=== PATIENT | female | born 1985 | race African-American/Black ===

== ENCOUNTER 2016-10-12 14:05 | Inpatient (IN) | payer OTHER ==
--- NOTE | ~2016-10-12 | CT16 ---
[facility] A Service of [facility] RADIOLOGY TEXT RESULTS PATIENT: JUVENAL MANCUSO LOCATION: [facility] 559-01 : [birth year] UNIT #: [id number] AGE: [address]: Giovani Pinzon MD SEX: F ORDER DR: [id number] [facility] [address] [place], [place] [address] [id number] E MR#: [id number] #: [id number] NAME: JUVENAL MANCUSO : 1985 SEX: F STUDY DATE/TIME: 10/12/2016 16:26 UNIT: [facility] ROOM: STUDY DESCRIPTION: CT Angio Chest for PE Attending Physician: Jonathan Ely M.D. Ordering Physician: Jonathan Ely M.D. Primary Care Physician: Kayy Nina Aprn MEDICAL IMAGING REPORT This report is preliminary unless electronic signature is present EXAM CT chest PE protocol 10/12/2016 HISTORY Flu-like symptoms, cough, shortness of air. COMPARISON STUDIES CT chest PE protocol 05/14/2015 TECHNIQUE Axial images performed through the chest following IV contrast. 3-D coronal and sagittal reconstructed images reviewed at a workstation. This CT exam was performed with one or more of the following radiation dose reduction techniques: automatic exposure control, adjustment of mA and/or kV according to patient size, and iterative reconstruction. FINDINGS There is a small right pleural effusion layering to a depth of just over a centimeter. Some fluid layers into the fissure. No significant fluid on the left. No focal airspace disease or consolidation. Minimal prominence of the interstitium could represent a component of interstitial edema. Trachea and bronchi unremarkable. There is cardiomegaly with 4-chamber enlargement been. No significant pericardial effusion. There is distension of the hepatic veins with reflux of contrast suggesting elevated right heart pressures and findings could reflect early CHF. Normal enhancement of the pulmonary arteries. No evidence of embolus. No significant adenopathy. Upper abdomen remarkable for prior Lap-Band surgery. Patient is post cholecystectomy. Thoracic spine thoracic inlet unremarkable. Pacemaker is noted over the left chest. [facility] A Service of [facility] RADIOLOGY TEXT RESULTS PATIENT: JUVENAL MANCUSO LOCATION: [facility] 559-01 : [birth year] UNIT #: [id number] AGE: [address]: Giovani Pinzon MD SEX: F ORDER DR: IMPRESSION 1. No evidence of pulmonary embolus. 2. Cardiomegaly with prominence of the pulmonary interstitium and small right pleural effusion as well as distension of hepatic veins all findings supporting heart failure. Dictated by... Yaakov Pro M.D. THIS IS AN ELECTRONICALLY VERIFIED REPORT Yaakov Pro M.D. at 10/13/2016 5:29 PM Odalis TD: 10/12/2016 17:30 JOB #: [id number] MEDICAL IMAGING REPORT Page 1 of 1 COPY
--- NOTE | ~2016-10-12 | EKG ---
PATIENT: JUVENAL MANCUSO UNIT #: [id number] Ventricular Rate: 118 BPM Atrial Rate: 118 BPM QRS Duration: 142 ms Q-T Interval: 410 ms QTC Calculation(Bezet): 574 ms P [place]: 90 degrees Calculated R [place]: -133 degrees Calculated T [place]: -123 degrees Diagnosis Line: Ventricular-paced rhythm Diagnosis Line: Biventricular pacemaker detected Diagnosis Line: Abnormal ECG Diagnosis Line: When compared with ECG of 13-OCT-2016 22:07, Diagnosis Line: (unconfirmed) Diagnosis Line: Vent. rate has decreased BY 7 BPM Diagnosis Line: Confirmed by ZAHRAA POOLE MD ([id number]) on 10/16/2016 Diagnosis Line: 9:16:11 PM INTERPRETING MD: VIRGILIO KWON
--- NOTE | ~2016-10-12 | HP ---
Unit #: [id number] #: [id number] Patient: JUVENAL MANCUSO [id number] [facility]. [place], [place] [address] [id number] I MR#: [id number] NAME: JUVENAL MANCUSO ROOM: 559 Age: 31 Sex: F Admission Date: 10/12/2016 : 1985 Attending Physician: Giovani Pinzon M.D. Primary Care Physician: Kayy Nina Aprn HISTORY AND PHYSICAL Also note, the patient [facility] Dr. Pinzon. HISTORY OF PRESENT ILLNESS This is a pleasant, 31-year-old -Pakistani female with a past medical history of nonischemic cardiomyopathy. Last known echo was 10 to 15%. She is status post biventricular AICD, [employer] device, in January of 2016, performed at [facility]. She also has a past medical history of asthma, left bundle branch block, hypertension, obesity, systolic congestive heart failure and the patient reports a history of pulmonary embolus in the past. The patient presents to the emergency room with complaints of shortness of breath, two to three pillow orthopnea and PND as well as lower extremity swelling for approximately one week. She states she had tried increasing her diuretics at home but that did not help. She does report, during the history, that she has been drinking more water lately as well as chewing on a lot of ice. She also eats out often and appears she is taking in more sodium than typical. The patient reported to me last week she had intermittent fever and chills and some flu-like symptoms as well as body aches, productive cough with yellow-greenish sputum. She also reports intermittent complaints of substernal chest pain that appear worse with ambulation but denies any radiation of the pain to her arm, jaw, shoulders or back and she denies any diaphoresis, nausea or vomiting. The patient does report intermittent palpitations from time to time. On arrival to the emergency room, the patient was noted to be in sinus tachycardia, rate of 111 beats per minute. She is in a paced rhythm. Initial point of care troponins have been negative. She was noted to be running a low-grade temperature and with borderline low blood pressure. Blood cultures were drawn which are currently pending. Her BNP was noted to be 1,055 on admission and her chest x-ray showed stable cardiomegaly. After speaking with the emergency room physician, it was decided to perform a CT angiogram of her chest to rule out pulmonary embolus. The patient reports she has a history of PE in the past. However, I reviewed the last several CT scans which show no evidence of PE. In the emergency room, she was also found to be severely hypokalemic with a potassium of 2.7. This is currently being replaced per protocol. At present, she looks fatigued. She does not feel well but she does not appear to be in any acute respiratory or cardiopulmonary distress. The patient does report to me that she has not been able to take her metoprolol as it causes severe fatigue and dizziness as well as sweating. Unit #: [id number] #: [id number] Patient: JUVENAL MANCUSO She states she has not been on it for approximately the last one week. We are admitting for the above reasons. PAST MEDICAL HISTORY 1. Nonischemic cardiomyopathy. EF of 10 to 15% per 2-D echo in 05/2015. Mildly dilated left ventricle. Mild to moderate MR, moderate TR and mild AR. Mild to moderate PVR. Elevated RVSP of 40 to 50 mmHg. 2. Hypertension. 3. Asthma. 4. Obesity. BMI 43. 5. Chronic left bundle branch block. 6. 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 Severe LV systolic dysfunction. Ejection fraction of 10 to 15% and severe MR. 7. Systolic congestive heart failure. PAST SURGICAL HISTORY 1. Status post [employer] biventricular AICD in January 2016. 2. Lap band 2012. 3. Cholecystectomy. 4. Tonsillectomy. 5. . SOCIAL HISTORY The patient is single. She lives with her family. 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 She is a lifelong nonsmoker. She denies any illicit drugs or alcohol. FAMILY HISTORY Positive for VT in her father at the age of 74. ALLERGIES Penicillin and sulfa. HOME MEDICATIONS 1. Metoprolol tartrate 50 mg p.o. b.i.d. However, the patient states she has not been taking this for approximately the last week due to intolerance. She states it causes dizziness, sweating. 2. Aldactone 25 mg p.o. daily. 3. Klor-Con 40 mEq p.o. daily. 4. Lisinopril 5 mg p.o. daily. 5. Furosemide 40 mg p.o. b.i.d. REVIEW OF SYSTEMS Positive for shortness of breath, intermittent chest pain, intermittent palpitations, lower extremity edema, PND, two pillow orthopnea. Otherwise, negative except for what was stated above in the HPI. PHYSICAL EXAMINATION GENERAL APPEARANCE: This is a pleasant 31-year-old -Pakistani female in no acute distress. She is awake, alert and oriented x3. VITAL SIGNS: Temperature 97.8. Respiratory rate 20. Pulse 116. Blood pressure 96/64 to 107/91. HEENT: Pupils are equal and round. Mucous membranes are moist. NECK: Trachea is midline. No thyromegaly or lymphadenopathy. Positive for JVD. No carotid bruits. Unit #: [id number] #: [id number] Patient: WALKER,JUVENAL LUNGS: Clear to auscultation. Diminished in the bases bilaterally. ABDOMEN: Obese, soft, nontender. No masses. CARDIOVASCULAR: S1, S2. Tachycardia. Positive S3. EXTREMITIES: Trace to 1+ pedal edema. Pulses are palpable. NEUROLOGIC: She is awake, alert and oriented. She moves all extremities equally. She follows commands without difficulty. DIAGNOSTIC STUDIES LABORATORY: Potassium is 2.7, currently being treated, BUN 12, creatinine 1.1, magnesium 1.8. Point of care troponins have been negative. BNP 1,055. TSH 2.91. Hemoglobin 14.0, hematocrit 43.1, WBC 4.5, platelet count 209. IMAGING: Chest x-ray shows cardiomegaly. No active disease. CARDIOVASCULAR: EKG shows atrial sensed ventricular paced rhythm, rate of 111 beats per minute, biventricular pacemaker is present. QTC interval of 587 msec. No acute ischemic change. IMPRESSION 1. Acute on chronic systolic congestive heart failure. 2. Nonischemic cardiomyopathy. LVEF of 10 to 15% per 2-D echo on April 11, 2016, also has moderate to severe mitral regurgitation, moderate to severe tricuspid regurgitation, mild pulmonic regurgitation, RVSP of 44 mmHg consistent with mild pulmonary hypertension. 3. Status post [employer] biventricular AICD in January of 2016. 4. Hypokalemia. 5. Cardiac cath in 2014 which showed normal coronary arteries. 6. History of PE per the patient, however, cannot find any prior record of this at present. 7. Hypertension. 8. Obesity. 9. Chronic left bundle branch block. 10. Asthma. The patient is being admitted for acute on chronic systolic congestive heart failure. She will be placed on an 1,800 mL fluid restriction as well as a low sodium diet. I have discussed with the patient the importance of following fluid restriction at home as well as low sodium at home as it appears she has not been doing so as of late. She is also found to be profoundly hypokalemic on admission. She has been given potassium supplementation and I have placed her on potassium and magnesium protocol replacement. She will be diuresed with Lasix 40 mg IV q.12 hours. She will also be started on dobutamine drip at 5 mcg/kg/minute. She reports a history of PE in the past and states she was on some medication but has not been taking it routinely. I have reviewed prior records and do not see any evidence of PE at this hospital. However, at present, I have discussed with the emergency room physician and they will go ahead and proceed with CTA of the chest to rule out PE. This is currently pending. For now, we will put her on Lovenox at 1 mg/kg subcu q.12 hours. We will also check CBC, BMP, magnesium and TSH levels in the a.m. The patient tells me she has been unable to tolerate metoprolol as it causes dizziness as well as diaphoresis. Once the dobutamine drip has stopped, we will try and change her to carvedilol moving forward. We will continue with daily weights, strict I and O. The patient does follow with Unit #: [id number] #: [id number] Patient: JUVENAL MANCUSO congestive heart failure clinic [place] as well as our office. Further recommendations pending Dr. Pinzon's assessment. Dictated by Arina Sutton A.P.R.N. for Giovani Pinzon M.D. LMW/bd TD: 10/13/2016 13:15 JOB #: [id number] HISTORY AND PHYSICAL Page 1 of 1 X Arina Sutton APRN X HISTORY AND PHYSICAL
--- NOTE | ~2016-10-12 | HP ---
Unit #: [id number] #: [id number] Patient: JUVENAL MANCUSO [id number] [address] [place], [place] [address] [id number] I MR#: [id number] NAME: JUVENAL MANCUSO ROOM: 559 Age: Sex: F Admission Date: 10/12/2016 : 1985 Attending Physician: Giovani Pinzon M.D. Primary Care Physician: Kayy Nina Aprn HISTORY AND PHYSICAL ADDENDUM Upon further review of office records, the patient was seen in the office by Dr. Pinzon in November of 2015. At that time, it looked like an echo was performed in the office which should show an EF of 15 to 20. Only mild mitral regurgitation and mild tricuspid regurgitation are noted with RVSP of 22 mmHg which was a significant drop in the pulmonary artery pressures over the last six months from 40 to 50 down to 22. It was determined the patient should continue present medications. It appears her device was interrogated last on March 07, 2016, with normal function. Dictated by Arina Sutton A.P.R.N. for Giovani Pinzon M.D. LMW/bd TD: 10/13/2016 12:43 JOB #: [id number] HISTORY AND PHYSICAL Page 1 of 1 X Arina Sutton APRN X HISTORY AND PHYSICAL
--- NOTE | ~2016-10-12 | EKG ---
PATIENT: JUVENAL MANCUSO UNIT #: [id number] Ventricular Rate: 111 BPM Atrial Rate: 111 BPM P-R Interval: 160 ms QRS Duration: 148 ms Q-T Interval: 432 ms QTC Calculation(Bezet): 587 ms Calculated R O'Brien: -155 degrees Calculated T O'Brien: -120 degrees Diagnosis Line: Atrial-sensed ventricular-paced rhythm Diagnosis Line: Biventricular pacemaker detected Diagnosis Line: Abnormal ECG Diagnosis Line: When compared with ECG of 09-APR-2016 11:38, Diagnosis Line: Vent. rate has increased BY 10 BPM Diagnosis Line: Confirmed by ROSE KWON, LAUREEN ([id number]) on Diagnosis Line: 10/12/2016 3:40:41 PM INTERPRETING MD: JESUS MANUEL
--- NOTE | ~2016-10-12 | CR72 ---
[facility] A Service of [facility] RADIOLOGY TEXT RESULTS PATIENT: JUVENAL MANCUSO LOCATION: [facility] 559-01 : [birth year] UNIT #: [id number] AGE: [address]: Giovani Pinzon MD SEX: F ORDER DR: [id number] [facility] [address] [facility] [place], [place] [address] [id number] E MR#: [id number] Acc #: [id number] NAME: JUVENAL MANCUSO : 1985 SEX: F STUDY DATE/TIME: 10/12/2016 13:34 UNIT: [facility] ROOM: STUDY DESCRIPTION: CR Chest Single View Portable Attending Physician: Jonathan Ely M.D. Ordering Physician: Jonathan Ely M.D. Primary Care Physician: Kayy Nina Aprn MEDICAL IMAGING REPORT This report is preliminary unless electronic signature is present EXAM Portable chest 10/12/2016 HISTORY Shortness of air and chest pain for 2 days. COMPARISON 05/31/2016 FINDINGS A portable view of the chest is obtained. Cardiomegaly is stable as is the trilead pacemaker. The lungs are clear. IMPRESSION No change cardiomegaly. No active disease. Dictated by... Greg Rice M.D. THIS IS AN ELECTRONICALLY VERIFIED REPORT Greg Rice M.D. at 10/13/2016 7:13 AM LUZ MARIA/kathe TD: 10/12/2016 15:32 JOB #: [id number] MEDICAL IMAGING REPORT Page 1 of 1 COPY
--- NOTE | ~2016-10-12 | DS ---
Unit #: [id number] #: [id number] Patient: JUVENAL MANCUSO [id number] [address] [address] [id number] I MR#: [id number] NAME: JUVENAL MANCUSO ROOM: 559 Age: 31 Sex: F Admission Date: 10/12/2016 : 1985 Discharge Date: 10/17/2016 Attending Physician: Giovani Pinzon M.D. Primary Care Physician: Kayy Nina Aprn DISCHARGE SUMMARY ADMITTING DIAGNOSES 1. Acute on chronic systolic congestive heart failure. 2. Nonischemic cardiomyopathy with an ejection fraction of 10% to 15%. 3. Status post biventricular Automatic implantable cardioverter defibrillator, 01/2016. 4. Hypokalemia. 5. History of normal coronary arteries on cardiac catheterization in 2014. 6. Hypertension. 7. Obesity. 8. Chronic left bundle branch block. 9. Asthma. DISCHARGE DIAGNOSES 1. Acute on chronic systolic congestive heart failure, compensated at time of discharge. 2. Nonischemic cardiomyopathy with an ejection fraction of 10% to 15%. 3. Status post biventricular Automatic implantable cardioverter defibrillator, 01/2016. 4. Hypokalemia, corrected. 5. History of normal coronary arteries on cardiac catheterization in 2014. 6. Hypertension. 7. Obesity. 8. Chronic left bundle branch block. 9. Asthma. PROCEDURES PERFORMED 1. On 10/12/2016, the patient had a CT PE protocol, which was negative for PE. With cardiomegaly with prominence of the pulmonary interstitium and small right pleural effusion, as well as distention of the hepatic veins. 2. Chest x-ray on 10/12/2016, showed no change in cardiomegaly and no active disease. HOSPITAL COURSE The patient is a 31-year-old -Maltese female with a history of nonischemic cardiomyopathy and systolic CHF who follows with Dr. Pinzon, as well as the heart failure clinic. She had complaints of progressive shortness of breath and three pillow orthopnea over the week prior to admission. She was found to be in acute systolic CHF and was admitted for diuresis and treatment. She was placed on an 1800 mL of fluid restriction, as well as a low sodium diet. She was started on IV Lasix and a dobutamine drip. PE was ruled out. Serial cardiac enzymes were Unit #: [id number] #: [id number] Patient: TONYA MANCUSOENIA negative. The BNP was elevated at 1,055. The patient was also started on full dose Lovenox. Cardiac rehab was also consulted. The dobutamine was discontinued on 10/13/2016. Her beta-jasmyne was reinstituted at that time. The patient continued to improve throughout the hospital course with diuresis. Her Lasix was changed over to oral on 10/15/2016. She did had another episode of chest pain of which cardiac enzymes were negative. At the time of discharge the patient's vitals are stable, blood pressure is 118/72, heart rate 102 and regular. The patient is mildly tachycardic. Lungs are clear. DISCHARGE MEDICATIONS 1. Coreg 3.125 mg twice daily. 2. Lasix 40 mg twice daily. 3. Zestril 5 mg daily. 4. Aldactone 25 mg daily. 5. Protonix 40 mg daily. 6. Potassium 20 mEq every other day. DISCHARGE INSTRUCTIONS Ms. Mancuso will be discharged home. She will follow up with Dr. Pinzon on 12/15/2016 at 2:30 p.m. She will follow up with Dr. El in regards to outpatient sleep apnea evaluation on Monday and was given the number, [phone] to schedule. She was informed to follow a low sodium diet and to monitor her weight daily. Dictated by... Misty Rodgers, P.A.C. for Alicia Escobedo M.D. CMG/john TD: 10/18/2016 11:24 JOB #: [id number] DISCHARGE SUMMARY Page 1 of 1 X X DISCHARGE SUMMARY
--- NOTE | ~2016-10-12 | DS ---
Unit #: [id number] #: [id number] Patient: JUVENAL MANUCSO [id number] [facility]. [place], [place] [address] [id number] I MR#: [id number] NAME: JUVENAL MANCUSO ROOM: 559 Age: 31 Sex: F Admission Date: 10/12/2016 : 1985 Discharge Date: 10/16/2016 Attending Physician: Giovani Pinzon M.D. Primary Care Physician: Kayy Nina Aprn DISCHARGE SUMMARY DISCHARGE DIAGNOSES 1. Acute on chronic systolic heart failure. 2. Nonischemic cardiomyopathy. 3. Ejection fraction 10% to 15%. 4. Presence of automatic implantable cardioverter defibrillator. 5. Morbid obesity. 6. Obstructive sleep apnea as noted on nighttime oximetry. 7. History of pulmonary embolus, per patient report. 8. Hypokalemia, now with hyperkalemia. 9. Normal coronaries on cardiac cath in 2014. DISCHARGE MEDICATIONS 1. Coreg 3.125 mg b.i.d. 2. Lasix 40 mg twice a day. 3. Lisinopril 5 mg daily. 4. Aldactone 25 mg daily. 5. Protonix 40 mg twice a day. 6. Potassium chloride 20 mEq, to start on Monday. HISTORY OF HOSPITAL COURSE The patient is a 31-year-old -J[place] female with nonischemic cardiomyopathy, chronic systolic heart failure, left bundle branch block. The patient has a history of pulmonary embolus but has not been taking anticoagulation and came in with increased shortness of breath, orthopnea, lower extremity edema. Her potassium was low on arrival when she was given replacement. She complained of indigestion and was put on Protonix 40 mg twice a day. She was started on a dobutamine drip. She had a CT of the chest that was negative for pulmonary embolus. She was started on IV Lasix. She was enrolled in cardiac rehab. She diuresed well with IV diuretics. She was gradually tapered off of dobutamine drip. Yesterday, she complained of some nausea but she was receiving medications on an empty stomach. Today, it has improved. She is to follow up with Dr. Parikh for outpatient GI workup. She has symptoms of obstructive sleep apnea and nighttime oximetry was performed. She had multiple episodes of hypoxemia, one episode where sats were less than 60, seven episodes less than 70, 22 less than 80 and 35 less than 89 and 35 less than 90. The patient will be seen by Dr. Rojas before discharge. Her ICD was also interrogated with normal device function and she had two nonsustained episodes of nonsustained VT but no therapy was recommended. Her beta jasmyne was changed to carvedilol. The patient will have [facility] home [facility] CHF program come to her house. They are going to recheck a BNP in a week. Her potassium was high this morning and that will be rechecked before she is discharged home. Unit #: [id number] #: [id number] Patient: JUVENAL MANCUSO CONDITION AT DISCHARGE Stable. DISCHARGE INSTRUCTIONS 1. DC home. 2. Enroll in cardiac rehab. 3. Dr. El to see prior to discharge for obstructive sleep apnea. 4. [facility] to follow, get a BNP in one week. 5. Follow up with us in our office in four to six weeks. 6. Follow up with her PCP in a week. 7. Follow up with Dr. Parikh for outpatient GI workup. Dictated by... Shraddha Null APRN for Ana Rosa Lawrence/lore TD: 10/17/2016 06:59 JOB #: [id number] DISCHARGE SUMMARY Page 1 of 1 X X DISCHARGE SUMMARY
--- NOTE | ~2016-10-12 | EKG ---
PATIENT: JUVENAL MANCUSO UNIT #: [id number] Ventricular Rate: 125 BPM Atrial Rate: 125 BPM P-R Interval: 116 ms QRS Duration: 150 ms Q-T Interval: 388 ms QTC Calculation(Bezet): 560 ms Calculated R [place]wood: -121 degrees Calculated T [place]wood: -133 degrees Diagnosis Line: Electronic ventricular pacemaker Diagnosis Line: When compared with ECG of 13-OCT-2016 12:21, Diagnosis Line: No significant change was found Diagnosis Line: Confirmed by ZAHRAA POOLE MD ([id number]) on 10/16/2016 Diagnosis Line: 8:27:05 PM INTERPRETING MD: VIRGILIO KWON
--- NOTE | ~2016-10-12 | EKG ---
PATIENT: JUVENAL MANCUSO UNIT #: [id number] Ventricular Rate: 126 BPM Atrial Rate: 126 BPM P-R Interval: 114 ms QRS Duration: 144 ms Q-T Interval: 366 ms QTC Calculation(Bezet): 530 ms Calculated R Neola: 172 degrees Calculated T Neola: 2 degrees Diagnosis Line: Electronic ventricular pacemaker Diagnosis Line: Atrial-sensed ventricular-paced rhythm Diagnosis Line: When compared with ECG of 12-OCT-2016 14:24, Diagnosis Line: Vent. rate has increased BY 15 BPM Diagnosis Line: Confirmed by ZAHRAA POOLE MD ([id number]) on 10/13/2016 Diagnosis Line: 10:37:57 PM INTERPRETING MD: VIRGILIO KWON
[2016-10-12 13:50] LABS: BASOPHIL% 0.9 % (0-2.5); EOSINOPHIL% 0.6 % (0.0-7.0); HEMATOCRIT 43.1 % (35.0-45.0); LYMPHOCYTE# 1.5 X10e3 (1.0-3.5); LYMPHOCYTE% 33.6 % (17.0-45.0); MEAN CELL VOLUME 96.5 FL (83-96); MEAN CORPUSCULAR HEMOGLOBIN 31.4 PG (28-34); MEAN CORPUSCULAR HGB CONC 32.6 g/dL (30-36); MEAN PLATELET VOLUME 9.4 FL (6.5-11.5); MONOCYTE# 0.3 X10e3 (0-1.0); MONOCYTE% 6.1 % (3.0-12.0); NEUTROPHIL# 2.7 X10e3 (1.5-7.1); NEUTROPHIL% 58.8 % (40-75); PLATELET COUNT 209 X10e3 (140-420); RED BLOOD COUNT 4.46 X10e (3.90-5.30); RED CELL DISTRIBUTION WIDTH 16.5 % (11.0-15.5); WHITE BLOOD COUNT 4.5 X10e3 (4.0-10.5)
[2016-10-12 13:51] LABS: POC - CKMB <1.0 ng/mL (0.0-7.9); POC - TROPONIN <0.05 ng/mL (<=0.05)
[2016-10-12 13:52] LABS: DIFF IND NO
[~2016-10-12 14:05] MED LIST: ALDACTONE25 MG PO; AMOXICILLIN PO; AUGMENTIN PO; CIPRO250 MG PO; DARVOCET-N 1001 TAB; DICLOFENAC PO; DOXYCYCLINE150 MG PO; FERRO-TIME325 MG PO; FIORINAL CAPSUL1 CAP; FIORINAL CAPSUL1 CAP PO; FLAGYL PO; FLONASE16 GM; FUROSEMIDE40 MG PO; IMITREX25 MG PO; KCL PO; LASIX PO; LEXAPRO PO; LISINOPRIL PO; LISINOPRIL5 MG PO; LOPRESSOR PO; LORTAB 5/500 TA1 TA1 PO; METOPROLOL TAR25 MG PO; MIDRIN CAPSULE1 CA1 PO; MOBIC15 MG PO; NAPROSYN500 MG PO; NEURONTIN600 MG PO; NO MEDICATIONS; PHENERGAN; PREDNISONE PO; PRENATAL1 TA1 PO; PRILOSEC20 M1 PO; PROCARDIA XL PO; ROBAXIN 750750 M1; ROBAXIN 750750 M1 PO; ROBAXIN500 MG PO; SKELAXIN PO; TOPAMAX PO; TYLENOL #3 PO; VOLTAREN50 MG; VOLTAREN50 MG PO; ZITHROMAX PO; ZOFRAN PO
[2016-10-12 14:11] LABS: ALBUMIN SERUM 3.8 g/dL (3.5-5.0); BILIRUBIN, DIRECT 0.9 mg/dL (0.0-0.2); BILIRUBIN,INDIRECT 1.9 mg/dL (0.0-0.9); BILIRUBIN,TOTAL 2.8 mg/dL (0.2-2.0); BUN/CREATININE RATIO 10.9; CALCIUM SERUM 9.3 mg/dL (8.4-10.2); CREATININE SERUM 1.1 mg/dL (0.6-1.4); MAGNESIUM 1.8 mg/dL (1.6-3.0); PROTEIN TOTAL SERUM 7.7 g/dL (6.0-8.3)
[2016-10-12 14:18] LABS: POTASSIUM 2.7 mmol/L (3.5-5.1)
[2016-10-12 15:56] LABS: POC - CKMB <1.0 ng/mL (0.0-7.9); POC - TROPONIN <0.05 ng/mL (<=0.05)
[2016-10-12 21:19] LABS: CK TOTAL 42 IU/L (26-140)
[2016-10-13 02:39] LABS: HEMATOCRIT 40.1 % (35.0-45.0); MEAN CELL VOLUME 96.9 FL (83-96); MEAN CORPUSCULAR HEMOGLOBIN 31.4 PG (28-34); MEAN CORPUSCULAR HGB CONC 32.4 g/dL (30-36); RED BLOOD COUNT 4.13 X10e (3.90-5.30)
[2016-10-13 03:00] LABS: CK TOTAL 43 IU/L (26-140)
[2016-10-13 03:15] LABS: GLOM FILT RATE Estimated 86.4 mL/min (>60); MAGNESIUM 1.7 mg/dL (1.6-3.0)
[2016-10-13 23:01] LABS: MAGNESIUM 2.2 mg/dL (1.6-3.0); POTASSIUM 4.2 mmol/L (3.5-5.1)
[2016-10-14 14:22] LABS: CREATININE SERUM 1.2 mg/dL (0.6-1.4); GLOM FILT RATE Estimated 69.3 mL/min (>60); POTASSIUM 4.2 mmol/L (3.5-5.1)
[2016-10-15 07:20] LABS: BUN/CREATININE RATIO 13.33; CREATININE SERUM 1.2 mg/dL (0.6-1.4); GLOM FILT RATE Estimated 69.3 mL/min (>60); POTASSIUM 3.8 mmol/L (3.5-5.1)
[2016-10-15 17:40] LABS: CK TOTAL 37 IU/L (26-140)
[2016-10-16 06:49] LABS: BUN/CREATININE RATIO 15.33; CALCIUM SERUM 9.9 mg/dL (8.4-10.2); CREATININE SERUM 1.5 mg/dL (0.6-1.4); GLOM FILT RATE Estimated 52.9 mL/min (>60); MAGNESIUM 1.9 mg/dL (1.6-3.0)
[2016-10-16 06:54] LABS: POTASSIUM 5.6 mmol/L (3.5-5.1)
[2016-10-16] MEDS ORDERED: COREG3.125 MG PO (13:12)
[2016-10-16] MEDS ORDERED: PROTONIX PO (13:13)
[2016-10-17 06:14] LABS: BUN/CREATININE RATIO 18.57; CALCIUM SERUM 9.4 mg/dL (8.4-10.2); CREATININE SERUM 1.4 mg/dL (0.6-1.4); GLOM FILT RATE Estimated 57.5 mL/min (>60); POTASSIUM 4.6 mmol/L (3.5-5.1)
[2016-10-17] MEDS ORDERED: COREG3.125 MG PO (15:26)
[2016-10-17] MEDS ORDERED: PROTONIX PO (15:26)
== END 2016-10-17 18:24 | disposition home or self-care (01) | DRG 292 ==
LOC: CED 14:05 → CEDOF 15:38 → C5B 19:19
PROVIDERS: Emergency Medicine; Internal Medicine Cardiovascular Disease; Nurse Practitioner
DX: I11.0 Hypertensive heart disease with heart failure (principal); I47.2 Ventricular tachycardia; E66.01 Morbid (severe) obesity due to excess calories; E87.5 Hyperkalemia; I08.1 Rheumatic disorders of both mitral and tricuspid valves; I50.23 Acute on chronic systolic (congestive) heart failure; I42.8 Other cardiomyopathies; Z95.810 Presence of automatic (implantable) cardiac defibrillator; E87.6 Hypokalemia; Z68.29 Body mass index [BMI] 29.0-29.9, adult; I44.7 Left bundle-branch block, unspecified; J45.909 Unspecified asthma, uncomplicated; G47.33 Obstructive sleep apnea (adult) (pediatric); Z86.711 Personal history of pulmonary embolism; Z90.49 Acquired absence of other specified parts of digestive tract; Z88.0 Allergy status to penicillin; Z88.2 Allergy status to sulfonamides; Z98.84 Bariatric surgery status
CPT/HCPCS: 36415; 71010; 71275; 80048; 80076; 82550; 82553; 82947; 83735; 83880; 84132; 84443; 84484; 85025; 85027; 87040; 93005; 94762; 99285; J0610; J1170; J1250; J1650; J1940; J2270; J2405; J2550; J2765; J3475; Q9967

== ENCOUNTER 2016-10-28 09:49 | Inpatient (IN) | payer OTHER ==
--- NOTE | ~2016-10-28 | HP ---
Unit #: [id number] #: [id number] Patient: JUVENAL MANCUSO [id number] [address] [address] [id number] I MR#: [id number] NAME: JUVENAL MANCUSO ROOM: 570 Age: 31 Sex: F Admission Date: 10/28/2016 : 1985 Attending Physician: Giovani Pinzon M.D. Primary Care Physician: Kayy Nina Aprn HISTORY AND PHYSICAL HISTORY OF PRESENT ILLNESS This is a 31-year-old, -N[place] female who was discharged from this facility 10 days ago where she was admitted with acute on chronic systolic heart failure. She is known to have nonischemic cardiomyopathy where ejection fraction per her last echocardiogram was 10% to 15%. She had AICD implantation in January of 2016. After discharge home, the patient says she was doing well until two days ago. She reports dyspnea at rest and on exertion. She has occasional nonproductive cough. Reports paroxysmal nocturnal dyspnea with 2-3 pillow orthopnea. She also reports significant right lower extremity edema. There is substernal and epigastric chest pain that is nonradiating to her neck, arm, or jaw. She says she has been compliant with her fluid restriction as well as sodium restriction. She came to the emergency room for evaluation where she was found to have elevated BNP of 1109. Chest x-ray was suggestive of congestive heart failure. She is mildly hypotensive. Troponin is negative and no acute ischemic changes on electrocardiogram. She had a cardiac catheterization in 2014 where she was found to have angiographic coronaries. Risks factors for heart disease includes hypertension and obesity with positive family history of premature coronary artery disease. The patient states that she had a decrease in her urinary output when taking just 40 mg of Lasix every day. Yesterday, she took 80 mg in a single dose and her urinary output increased. PAST MEDICAL HISTORY 1. Cardiac catheterization, 05/2015, shows normal coronaries. 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 Ejection fraction of 10% to 15%. 2. Two-dimensional echocardiogram, 04/11/2016, which shows an ejection fraction of 10% to 15%. Right and left atrium mildly dilated. Mildly dilated right ventricle. There is mild pulmonary hypertension with right ventricular systolic pressure of 44 mmHg. Bgnfvnrc-pb-myceem mitral regurgitation and imjjttza-kv-cxwadv tricuspid regurgitation. Mild pulmonic regurgitation. 3. Nonischemic cardiomyopathy, status post [employer] AICD, 01/2016. 4. Chronic systolic heart failure. 5. Hypertension. 6. Chronic left bundle branch block. 7. Asthma. 8. Obesity. 9. Nonsmoker. PAST SURGICAL HISTORY 1. Cholecystectomy. Unit #: [id number] #: [id number] Patient: JUVENAL MANCUSO 2. AICD implantation. 3. LAP-BAND surgery in 2012. 4. Tonsillectomy. 5. section. SOCIAL HISTORY The patient is single and has young children that she cares for. She has never smoked. No illicit drug or alcohol use. FAMILY HISTORY Positive for myocardial infarction in the father at age 74. ALLERGIES Penicillin and sulfa. HOME MEDICATIONS 1. Carvedilol 3.125 mg b.i.d. 2. Furosemide 40 mg b.i.d. 3. Lisinopril 5 mg daily. 4. Aldactone 25 mg daily. 5. Protonix 40 mg b.i.d. 6. Potassium chloride 20 mEq daily. REVIEW OF SYSTEMS CONSTITUTIONAL: Negative for fever, but reports chills. Unsure of weight gain or weight loss. HEENT: No headache. No visual changes or difficulty with swallowing. Negative for dizziness. CARDIOVASCULAR: Has chest discomfort, as described in the HPI. Negative for palpitations. Positive for paroxysmal nocturnal dyspnea with 2-pillow orthopnea. No syncope or near syncope. RESPIRATORY: Positive for dyspnea at rest and on exertion. Has a nonproductive cough. No hemoptysis. GASTROINTESTINAL: Positive for epigastric pain. No nausea or vomiting. EXTREMITIES: Has bilateral lower extremity edema with right much significant than the left. PHYSICAL EXAMINATION VITAL SIGNS: Blood pressure 96/72, heart rate 99, and temperature 97.5. GENERAL: This is a very pleasant, 31-year-old, young, -[place] female who is in no acute respiratory distress. NEUROLOGICAL: She is awake, alert, and oriented. There are no focal weaknesses. NECK: Trachea is midline. No thyromegaly or lymphadenopathy with positive jugular venous distention. HEART: S1 and S2 heart sounds are normal with a grade 2/6 systolic murmur heard along the left sternal border. No rubs or clicks. Regular rate and rhythm. ABDOMEN: Soft with tenderness in the right upper quadrant. There is 4+ hepatomegaly. EXTREMITIES: With 4+ leg edema on the right and 2-3+ on the left. DIAGNOSTIC STUDIES LABORATORY: Hemoglobin 13.3, hematocrit of 41, platelet count 181, and white count 5.1. Sodium 135, potassium 3.7, BUN 18, creatinine 1.4, and glucose 93. Troponin less than 0.05. BNP 1109. IMAGING: Chest x-ray shows stable moderate cardiomegaly with mild Unit #: [id number] #: [id number] Patient: WALKER,JUVENAL pulmonary venous distention. CARDIOVASCULAR: Electrocardiogram shows ventricular paced rhythm. IMPRESSION 1. Acute on chronic systolic heart failure with reduced ejection fraction of 10% to 15%. 2. Right lower extremity edema. Rule out deep venous thrombosis. 3. Hepatic congestion secondary to severe tricuspid regurgitation. 4. Atypical chest pain. 5. Nonischemic cardiomyopathy, status post AICD. 6. Borderline hypotension. 7. Obesity. PLAN 1. Will diurese the patient with IV diuretics. 2. Will start a short course of dobutamine for one day only. 3. Check D-dimer and ultrasound of the lower extremity to rule out deep venous thrombosis/PE. 4. Fluid and sodium restriction will be enforced. 5. PICC line for IV access as needed. 6. The patient needs to be evaluated for cardiac transplant. May need to transfer to [facility]. 7. Chest pain is atypical for ischemic heart disease. Troponin is negative. Her chest pain is constant. She had normal coronaries per cardiac catheterization in 2014. Dictated by Tej Wilson A.P.R.N. for Ana Rosa Santana TD: 10/29/2016 07:23 JOB #: [id number] HISTORY AND PHYSICAL Page 1 of 1 X Tej Wilson APRN HISTORY AND PHYSICAL
--- NOTE | ~2016-10-28 | DS ---
Unit #: [id number] #: [id number] Patient: JUVENAL MANCUSO [id number] [facility]. [place] [id number] I MR#: [id number] NAME: JUVENAL MANCUSO ROOM: 570 Age: 31 Sex: F Admission Date: 10/28/2016 : 1985 Discharge Date: 10/31/2016 Attending Physician: Giovani Pinzon M.D. Primary Care Physician: Kayy Nina Aprn DISCHARGE SUMMARY DISCHARGE DIAGNOSES 1. Acute on chronic systolic heart failure with reduced ejection fraction of 10% to 15%. 2. Right lower extremity edema, ruled out for deep vein thrombosis. 3. Nonischemic cardiomyopathy status post automatic implantable cardioverter-defibrillator. 4. Hepatic congestion secondary to congestive heart failure. 5. History of hypertension with borderline hypotension, resolved. 6. Obesity. 7. Atypical chest pain. DISCHARGE MEDICATIONS 1. Acetaminophen 650 mg q.6 hours p.r.n. 2. Carvedilol 3.125 mg b.i.d. 3. Furosemide 60 mg b.i.d. with an additional 40 mg if increase in swelling or shortness of breath. 4. Lisinopril 5 mg daily. 5. Aldactone 25 mg daily. 6. Protonix 40 mg b.i.d. 7. Potassium chloride 20 mEq daily. HOSPITAL COURSE This is a 31-year-old female who is known to have acute on chronic systolic heart failure with an ejection fraction, as per cardiac catheterization in 2004, of 10% to 15%. At that time she had angiographically normal coronaries. She came in for complaints of shortness of breath and leg edema. There was elevation of BNP and chest x-ray findings that were consistent with congestive heart failure. She was treated with IV diuretics. Ultrasound of bilateral lower extremities ruled her out for deep venous thrombosis. She received a short course of dobutamine. Fluid and sodium restrictions were ensued. Carvedilol was withheld while on dobutamine. She did have an 8-beat run of nonsustained ventricular tachycardia. She had no additional ventricular tachycardia after dobutamine was discontinued. Carvedilol was restarted. Today the patient is euvolemic on examination. She has no shortness of breath or chest pain. Repeat chest x-ray shows moderate right pleural effusion, but the pulmonary vasculature remained normal. CHF education was given to the patient. Blood pressure currently stable. She is stable for discharge today. ASSESSMENT VITAL SIGNS: Blood pressure 113/74, heart rate 104. Unit #: [id number] #: [id number] Patient: WALKER,JUVENAL CHEST: With diminished breath sounds. HEART: S1, S2. Regular rate and rhythm. ABDOMEN: Soft with bowel sounds present. EXTREMITIES: With improved leg edema. DIAGNOSTIC STUDIES LABORATORY STUDIES: Glucose 87, BUN 16, creatinine 1.2, sodium 138, potassium 3.5. D-dimer 3,459. White count 5.1, hemoglobin 13.3, hematocrit 41, platelet count 181. DIAGNOSTIC IMAGING: CT angio of the chest shows cardiomegaly and distended hepatitic veins that suggest elevated right heart pressures and mild congestive heart failure. No evidence of pulmonary embolism. Ultrasound of bilateral lower extremities negative for deep vein thrombosis. Repeat chest x-ray today shows globular cardiomegaly, most likely cardiomyopathy. Moderate right pleural effusion, which may be noncardiogenic, as pulmonary vasculature is normal. CARDIOVASCULAR: Rhythm strip shows atrially paced rhythm. DISCHARGE INSTRUCTIONS 1. The patient will be discharged home today. 2. She is to increase diuretics with Lasix 60 mg b.i.d. with an additional 40 mg if increase in shortness of breath or swelling. 3. Continue Aldactone. 4. Continue beta-jasmyne and DONNA inhibitor. 5. CHF education has been given. 6. Follow up with Dr. Pinzon on December 15 at 2:30 p.m. Transplant referral may be needed. Dictated by... Carlos Overton M.D. AEP/justin TD: 11/02/2016 07:56 JOB #: [id number] DISCHARGE SUMMARY Page 1 of 1 X Tej Wilson APRN X DISCHARGE SUMMARY
--- NOTE | ~2016-10-28 | CR63 ---
[facility] A Service of [facility] & [facility] RADIOLOGY TEXT RESULTS PATIENT: JUVENAL MANCUSO LOCATION: [facility] 570-01 : [birth year] UNIT #: [id number] AGE: [address]: Giovani Pinzon MD SEX: F ORDER DR: [id number] [facility] [address] [place], [place] [address] [id number] I MR#: [id number] Acc #: [id number] NAME: JUVENAL MANCUSO : 1985 SEX: F STUDY DATE/TIME: 10/31/2016 9:10 UNIT: [facility] ROOM: [facility] STUDY DESCRIPTION: CR Chest 2 View Attending Physician: Giovani Pinzon M.D. Ordering Physician: Gunnar Euceda M.D. Primary Care Physician: Kayy Nina Aprn MEDICAL IMAGING REPORT This report is preliminary unless electronic signature is present EXAM Chest, 10/31/2016 at 09:10 hours HISTORY 31-year-old female patient with chest pain, short of breath. History of hypertension and asthma. Current symptoms noted 10/26/2016. Previous pacemaker. FINDINGS Two-view chest demonstrates globular cardiomegaly. There is a moderate right pleural effusion present. This is previously noted. It may be slightly progressive however. Permanent pacemaker is again noted on the left with triple leads placed. Lap-Band is partially imaged. IMPRESSION Globular cardiomegaly most likely cardiomyopathy. Triple pacing leads well positioned. Moderate right pleural effusion which may be noncardiogenic as pulmonary vascularity appears normal. Lap-Band partially imaged. Dictated by... Sharan Osborne M.D. THIS IS AN ELECTRONICALLY VERIFIED REPORT Sharan Osborne M.D. at 10/31/2016 12:39 PM Dillon TD: 10/31/2016 10:20 JOB #: [id number] MEDICAL IMAGING REPORT Page 1 of 1 COPY
--- NOTE | ~2016-10-28 | CT16 ---
[facility] A Service of [facility] RADIOLOGY TEXT RESULTS PATIENT: JUVENAL MANCUSO LOCATION: [facility] : [birth year] UNIT #: [id number] AGE: [address]: Giovani Pinzon MD SEX: F ORDER DR: [id number] [facility] [address] [place], [place] [address] [id number] I MR#: [id number] Acc #: [id number] NAME: JUVENAL MANCUSO : 1985 SEX: F STUDY DATE/TIME: 10/28/2016 21:01 UNIT: [facility] ROOM: [facility] STUDY DESCRIPTION: CT Angio Chest for PE Attending Physician: Giovani Pinzon M.D. Ordering Physician: Giovani Pinzon M.D. Primary Care Physician: Kayy Nina Aprn MEDICAL IMAGING REPORT This report is preliminary unless electronic signature is present EXAM CT chest PE protocol. HISTORY Chest pain, shortness of air x2 days, elevated D-dimer. COMPARISON CT chest PE protocol 10/12/[address] exam was performed with one or more of the following radiation dose reduction techniques: automatic exposure control, adjustment of mA and/or kV according to patient size, and iterative reconstruction. Axial images form through the chest following IV contrast. 3-D coronal and sagittal reconstructed images reviewed a workstation. FINDINGS There is a small right pleural effusion. No focal airspace disease or consolidation. Trachea bronchi unremarkable. Normal enhancement of the pulmonary arteries. No evidence of embolus. Cardiomegaly with distension of the hepatic veins and reflux into the hepatic veins compatible with elevated heart pressures and CHF. Upper abdomen unremarkable. Patient is post cholecystectomy. Mild generalized body wall edema. Thoracic spine thoracic inlet unremarkable. Pacemaker noted over the left chest. IMPRESSION 1. Findings are similar to the patient's CT scan of 10/12/2016 demonstrating a small right pleural effusion. Cardiomegaly and distension of hepatic veins. Findings suggesting elevated right [facility] A Service of [facility] RADIOLOGY TEXT RESULTS PATIENT: JUVENAL MANCUSO LOCATION: [facility] : [birth year] UNIT #: [id number] AGE: [address]: Giovani Pinzon MD SEX: F ORDER DR: heart pressures and mild CHF. 2. No evidence of pulmonary embolus. 3. Not mentioned above, lap-band device noted. Dictated by... Yaakov Pro M.D. THIS IS AN ELECTRONICALLY VERIFIED REPORT Yaakov Pro M.D. at 10/31/2016 6:07 AM Noreen TD: 10/29/2016 01:03 JOB #: [id number] MEDICAL IMAGING REPORT Page 1 of 1 COPY
--- NOTE | ~2016-10-28 | CR230 ---
[facility] A Service of [facility] & [facility] RADIOLOGY TEXT RESULTS PATIENT: JUVENAL MANCUSO LOCATION: [facility] 570-01 : [birth year] UNIT #: [id number] AGE: [address]: Giovani Pinzon MD SEX: F ORDER DR: [id number] [facility] [address] [place], [place] [address] [id number] I MR#: [id number] Acc #: [id number] NAME: JUVENAL MANCUSO : 1985 SEX: F STUDY DATE/TIME: 10/29/2016 14:21 UNIT: [facility] ROOM: [facility] STUDY DESCRIPTION: CR Shoulder Min 2 View Rt Attending Physician: Giovani Pinzon M.D. Ordering Physician: Giovani Pinzon M.D. Primary Care Physician: Kayy Nina Aprn MEDICAL IMAGING REPORT This report is preliminary unless electronic signature is present EXAM Right shoulder, 2 views. HISTORY Shoulder pain for 2 weeks. No injury. FINDINGS 2 views of the right shoulder demonstrate satisfactory shoulder alignment. No fracture, joint space narrowing, or dislocation. No abnormal sclerosis. Mild subsegmental atelectasis or infiltrate in the right lung base. This corresponds to a similar finding on CT chest yesterday. IMPRESSION 1. Negative right shoulder. 2. Mild right basilar subsegmental atelectasis or infiltrate. Dictated by... Edwin Villegas M.D. THIS IS AN ELECTRONICALLY VERIFIED REPORT Edwin Villegas M.D. at 10/29/2016 10:36 PM JYOTI/mikala TD: 10/29/2016 15:22 JOB #: [id number] MEDICAL IMAGING REPORT Page 1 of 1 COPY
--- NOTE | ~2016-10-28 | BMI ---
[facility] Nutrition Therapy DATE: 10/29/16 Patient: JUVENAL MANCUSO Physician: RAMON Address: [address] [place] [address] Room/Bed: [address] [place] [address], Zip: [place] [address] Admit Date: 10/28/16 Date of : [birth year] Height: 5 3 Weight: 239 108.6 HIGH BMI NOTE: DX: PATIENT ADMITTED FOR HEART FAILURE ANTHROPOMETRICS: HT: 63", WT: 239#, BMI: 42.3 DIET: HEART HEALTHY, 2GM SODIUM, 1800ML FLUID RESTRICTION RECOMMENDATIONS: CONTINUE HEART HEALTHY DIET WITH 2GM SODIUM AND 1800 ML FLUID RESTRICTION TO PROMOTE A STEADY WEIGHT LOSS TOWARDS A HEALTHY BMI OF 19-25. Respectfully, IVÁN GUPTA, ROBERT, LD [facility] cc: client file
--- NOTE | ~2016-10-28 | CR72 ---
[facility] A Service of [facility] RADIOLOGY TEXT RESULTS PATIENT: JUVENAL MANCUSO LOCATION: [facility] : 84 UNIT #: [id number] AGE: [address]: Jonathan Brothers MD SEX: F ORDER DR: [id number] [facility] [address] [place], [place] [address] [id number] E MR#: [id number] Acc #: [id number] NAME: JUVENAL MANCUSO : 1985 SEX: F STUDY DATE/TIME: 10/28/2016 10:54 UNIT: [facility] ROOM: STUDY DESCRIPTION: CR Chest Single View Portable Attending Physician: Jonathan Brothers Ordering Physician: Ed Doctor [id number] [facility] Primary Care Physician: Kayy Nina Aprn MEDICAL IMAGING REPORT This report is preliminary unless electronic signature is present EXAM Chest portable 10/28/2016 1054 hours HISTORY 31-year-old woman with chest pain and shortness of air since last night. COMPARISON CT angiogram of the chest and portable chest film 10/12/2016 FINDINGS Portable upright chest demonstrates persistent low lung volumes with stable moderate cardiomegaly and multi lead pacer device. There is mild pulmonary venous distension with minimal perihilar and suprahilar interstitial prominence similar to 10/12/2016. No definite effusion is seen. IMPRESSION 1. Persistently low lung volumes with stable moderate cardiomegaly and pacer device. 2. There is mild pulmonary venous distension and interstitial change in the suprahilar regions similar to 10/12/2016. This could represent atelectasis or minimal edema. The lung bases are clear and there is no definite effusion. Dictated by... Nichole Avina M.D. THIS IS AN ELECTRONICALLY VERIFIED REPORT Nichole Avina M.D. at 10/28/2016 2:26 PM Noelle TD: 10/28/2016 12:45 JOB #: [id number] [facility] A Service of [facility] RADIOLOGY TEXT RESULTS PATIENT: JUVENAL MANCUSO LOCATION: [facility] #: [id number] : [birth year] UNIT #: [id number] AGE: [address]: Jonathan Brothers MD SEX: F ORDER DR: MEDICAL IMAGING REPORT Page 1 of 1 COPY
--- NOTE | ~2016-10-28 | EKG ---
PATIENT: JUVENAL MANCUSO UNIT #: [id number] Ventricular Rate: 113 BPM Atrial Rate: 226 BPM QRS Duration: 150 ms Q-T Interval: 432 ms QTC Calculation(Bezet): 592 ms P Dennison: 118 degrees Calculated R Dennison: -142 degrees Calculated T Dennison: -145 degrees Diagnosis Line: Electronic ventricular pacemaker Diagnosis Line: When compared with ECG of 15-OCT-2016 17:07, Diagnosis Line: Vent. rate has decreased BY 5 BPM Diagnosis Line: Confirmed by FEDERICO FREEDMAN MD ([id number]) on Diagnosis Line: 10/29/2016 4:25:43 PM INTERPRETING MD: TANO KWON
--- NOTE | ~2016-10-28 | US84 ---
[id number] [facility] [address] [place], [place] [address] [id number] I MR#: [id number] Acc #: [id number] NAME: JUVENAL MANCUSO : 1985 SEX: F STUDY DATE/TIME: 10/28/2016 16:42 UNIT: [facility] ROOM: 570 STUDY DESCRIPTION: US LE Veins Complete Barrie Stdy Attending Physician: Giovani Pinzon M.D. Ordering Physician: Giovani Pinzon M.D. Primary Care Physician: Kayy Nina Aprn MEDICAL IMAGING REPORT This report is preliminary unless electronic signature is present EXAM Bilateral lower extremity venous duplex scan. DATE OF EXAM 10/28/2016 HISTORY Shortness of breath. History of pulmonary embolus. FINDINGS High-resolution B-mode imaging and color flow Doppler analysis was performed of the deep and superficial veins of the lower extremities bilaterally. All veins are fully compressible with no intraluminal thrombus. Spontaneous and phasic flow is noted in the common femoral, deep femoral, femoral, and popliteal veins bilaterally. Flow is demonstrated in the anterior tibial, posterior tibial and peroneal veins on both sides. Flow is also present in the great saphenous veins bilaterally. IMPRESSION Normal venous examination of the lower extremities bilaterally. No deep or superficial vein thrombosis in either leg. Dictated by... James Perez M.D. THIS IS AN ELECTRONICALLY VERIFIED REPORT James Perez M.D. at 11/10/2016 11:43 AM ZIGGY/keaton TD: 10/28/2016 21:27 JOB #: [id number] MEDICAL IMAGING REPORT Page 1 of 1 COPY
--- NOTE | ~2016-10-28 | CR72 ---
[facility] A Service of [facility] & [facility] RADIOLOGY TEXT RESULTS PATIENT: JUVENAL MANCUSO [facility]: [facility] 570-01 : [birth year] UNIT #: [id number] AGE: [address]: Giovani Pinzon MD SEX: F ORDER DR: [id number] [facility] [address] [place], [place] [address] [id number] I MR#: [id number] Acc #: [id number] NAME: JUVENAL MANCUSO : 1985 SEX: F STUDY DATE/TIME: 10/30/2016 5:48 UNIT[facility] ROOM: [facility] STUDY DESCRIPTION: CR Chest Single View Portable Attending Physician: Giovani Pinzon M.D. Ordering Physician: Giovani Pinzon M.D. Primary Care Physician: Kayy Nina Aprn MEDICAL IMAGING REPORT This report is preliminary unless electronic signature is present EXAM Portable chest, 10/30/2016. HISTORY Chest pain and shortness of air for 2 days. COMPARISON Chest, 10/28/2016. FINDINGS Frontal chest demonstrates stable cardiomegaly. Left-sided AICD complex. Mediastinum and pulmonary vasculature is stable. Low lung volumes. Lungs appear otherwise clear. No pneumothorax. IMPRESSION Stable cardiomegaly and low lung volumes. No change from 10/28/2016. Dictated by... Mir Guzman M.D. THIS IS AN ELECTRONICALLY VERIFIED REPORT Mir Guzman M.D. at 10/31/2016 8:52 AM DEYVI/mikala TD: 10/30/2016 07:20 JOB #: [id number] MEDICAL IMAGING REPORT Page 1 of 1 COPY
[~2016-10-28 09:49] MED LIST changes: +COREG3.125 MG PO; +PROTONIX PO
[2016-10-28 10:59] LABS: BASOPHIL# 0.1 X10e3 (0-0.3); BASOPHIL% 1.1 % (0-2.5); EOSINOPHIL# 0.2 X10e3 (0-0.7); EOSINOPHIL% 3.4 % (0.0-7.0); HEMOGLOBIN 13.3 gm/dL (12.0-16.0); LYMPHOCYTE# 1.4 X10e3 (1.0-3.5); LYMPHOCYTE% 28.1 % (17.0-45.0); MEAN CELL VOLUME 96.7 FL (83-96); MEAN CORPUSCULAR HEMOGLOBIN 31.3 PG (28-34); MEAN CORPUSCULAR HGB CONC 32.4 g/dL (30-36); MEAN PLATELET VOLUME 9.6 FL (6.5-11.5); MONOCYTE# 0.5 X10e3 (0-1.0); MONOCYTE% 10.5 % (3.0-12.0); NEUTROPHIL# 2.9 X10e3 (1.5-7.1); NEUTROPHIL% 56.9 % (40-75); PLATELET COUNT 181 X10e3 (140-420); RED BLOOD COUNT 4.24 X10e (3.90-5.30); RED CELL DISTRIBUTION WIDTH 17.1 % (11.0-15.5); WHITE BLOOD COUNT 5.1 X10e3 (4.0-10.5)
[2016-10-28 11:03] LABS: DIFF IND NO
[2016-10-28 11:11] LABS: POC - CKMB <1.0 ng/mL (0.0-7.9); POC - TROPONIN <0.05 ng/mL (<=0.05)
[2016-10-28 11:33] LABS: BUN/CREATININE RATIO 12.85; CALCIUM SERUM 9.3 mg/dL (8.4-10.2); CREATININE SERUM 1.4 mg/dL (0.6-1.4); GLOM FILT RATE Estimated 57.5 mL/min (>60); POTASSIUM 3.7 mmol/L (3.5-5.1)
[2016-10-28 13:01] LABS: POC - CKMB <1.0 ng/mL (0.0-7.9); POC - TROPONIN <0.05 ng/mL (<=0.05)
[2016-10-28] MEDS ORDERED: PATIENT'S PHARMACY (14:38)
[2016-10-29 04:35] LABS: BUN/CREATININE RATIO 17.27; CALCIUM SERUM 8.8 mg/dL (8.4-10.2); CREATININE SERUM 1.1 mg/dL (0.6-1.4); MAGNESIUM 2.1 mg/dL (1.6-3.0); POTASSIUM 3.6 mmol/L (3.5-5.1)
[2016-10-30 08:53] LABS: BUN/CREATININE RATIO 13.33; CALCIUM SERUM 9.1 mg/dL (8.4-10.2); CREATININE SERUM 1.2 mg/dL (0.6-1.4); GLOM FILT RATE Estimated 69.3 mL/min (>60); POTASSIUM 3.5 mmol/L (3.5-5.1)
[2016-10-31] MEDS ORDERED: ACETAMINOPHEN650 M4 PO (10:45)
[2016-10-31] MEDS ORDERED: LASIX PO (10:47)
[2016-10-31] MEDS ORDERED: FUROSEMIDE40 MG PO (10:48)
== END 2016-10-31 16:47 | disposition home or self-care (01) | DRG 292 ==
LOC: CED 09:49 → CEDOF 13:45 → CED 14:40 → C5C 14:40 → CEDOF 14:40 → C5C 18:37 → CEDOF 18:37 → C5C 10-31 16:47
PROVIDERS: Emergency Medicine; Internal Medicine Cardiovascular Disease
PROC: B32SYZZ Computerized Tomography (CT Scan) of Right Pulmonary Artery using Other Contrast (ICD-10-PCS; principal; 2016-10-28)
PROC: B32TYZZ Computerized Tomography (CT Scan) of Left Pulmonary Artery using Other Contrast (ICD-10-PCS; 2016-10-28)
PROC: 05H333Z Insertion of Infusion Device into Right Innominate Vein, Percutaneous Approach (ICD-10-PCS; 2016-10-29)
PROC: B54MZZA Ultrasonography of Right Upper Extremity Veins, Guidance (ICD-10-PCS; 2016-10-29)
DX: I11.0 Hypertensive heart disease with heart failure (principal); Z68.41 Body mass index [BMI] 40.0-44.9, adult; I95.9 Hypotension, unspecified; I27.2 Other secondary pulmonary hypertension; I42.8 Other cardiomyopathies; K76.1 Chronic passive congestion of liver; I08.1 Rheumatic disorders of both mitral and tricuspid valves; I50.23 Acute on chronic systolic (congestive) heart failure; Z88.0 Allergy status to penicillin; Z88.2 Allergy status to sulfonamides; E66.9 Obesity, unspecified; R07.89 Other chest pain; J45.909 Unspecified asthma, uncomplicated; I44.7 Left bundle-branch block, unspecified; Z90.49 Acquired absence of other specified parts of digestive tract; Z95.810 Presence of automatic (implantable) cardiac defibrillator; Z98.84 Bariatric surgery status; R60.9 Edema, unspecified
CPT/HCPCS: 36415; 71010; 71020; 71275; 73030; 80048; 82553; 83735; 83880; 84484; 84703; 85025; 85379; 93005; 93970; 94760; 99285; J1250; J1650; J2270; J2405; Q9967

== ENCOUNTER 2016-11-05 08:25 | Emergency (ER) | payer OTHER ==
--- NOTE | ~2016-11-05 | CR72 ---
[facility] A Service of [facility] & [facility] RADIOLOGY TEXT RESULTS PATIENT: JUVENAL MANCUSO LOCATION: [facility] : 84 UNIT #: [id number] AGE: [address]: Merna Joshi APRN SEX: F ORDER DR: [id number] [facility] [address] [place], [place] [address] [id number] E MR#: [id number] Acc #: [id number] NAME: JUVENAL MANCUSO : 1985 SEX: F STUDY DATE/TIME: 11/05/2016 9:04 UNIT: [facility] ROOM: STUDY DESCRIPTION: CR Chest Single View Portable Attending Physician: Merna Joshi A.P.R.N. Ordering Physician: Ed Doctor [id number] [facility] Primary Care Physician: Kayy Nina Aprn MEDICAL IMAGING REPORT This report is preliminary unless electronic signature is present EXAM Portable AP view of the chest COMPARISON October 31, 2016; October 30, 2016 and October 28, 2016. INDICATION 31-year-old female with dyspnea and bilateral leg swelling today. History of asthma and CHF. Pacemaker. FINDINGS Multilead left chest pacemaker/defibrillator device is stable. There is stable cardiomegaly which may be accentuated by low lung volumes and portable technique. Similar appearing band-like opacity overlapping the right hemidiaphragm may represent crowding of bronchovascular structures or minimal atelectasis. No convincing evidence of acute pneumonia. No pneumothorax. No clinically significant pleural effusion. Not well evaluated due to under-penetration gastric Lap-Band collar appears grossly stable in position. IMPRESSION No acute radiographic abnormality. There is cardiomegaly with similar band-like opacity in the right lung base overlapping right hemidiaphragm. There are low lung volumes and this is favored to represent bronchovascular crowding and/or atelectasis. Dictated by... Johnny Linda M.D. THIS IS AN ELECTRONICALLY VERIFIED REPORT Johnny Linda M.D. at 11/12/2016 2:21 PM JUDITH/lexus [facility] A Service of [facility] & [facility] RADIOLOGY TEXT RESULTS PATIENT: JUVENAL MANCUSO LOCATION: [facility] : 84 UNIT #: [id number] AGE: [address]: Merna Joshi APRN SEX: F ORDER DR: TD: 11/05/2016 12:22 JOB #: [id number] MEDICAL IMAGING REPORT Page 1 of 1 COPY
--- NOTE | ~2016-11-05 | CR72 ---
[facility] A Service of [facility] & [facility] RADIOLOGY TEXT RESULTS PATIENT: JUVENAL MANCUSO LOCATION: [facility] : 84 UNIT #: [id number] AGE: [address]: Merna Joshi APRN SEX: F ORDER DR: [id number] [facility] [address] [place], [place] [address] [id number] E MR#: [id number] Acc #: [id number] NAME: JUVENAL MANCUSO : 1985 SEX: F STUDY DATE/TIME: 11/05/2016 10:27 UNIT: [facility] ROOM: STUDY DESCRIPTION: CR Chest Single View Portable Attending Physician: Merna Joshi A.P.R.N. Ordering Physician: Ed Doctor [id number] [facility] Primary Care Physician: Kayy Nina Aprn MEDICAL IMAGING REPORT This report is preliminary unless electronic signature is present EXAM Portable AP view of the chest COMPARISON November 05, 2016 at 09:49 a.m. and October 31, 2016 as well as October 30, 2016. INDICATION 31-year-old female post right internal jugular catheter placement today. Dyspnea and chest pain today. History of asthma and CHF. FINDINGS/IMPRESSION Similar appearing focal opacity in the right lung base which appears more rounded on this exam as compared to earlier today and this may represent area of round atelectasis or small amount of loculated pleural fluid. Given the rounded nature, followup imaging is recommended to exclude a pulmonary lesion. There has been interval placement of right internal jugular catheter since earlier today. There is adequate position of catheter tip in the upper SVC. No evidence of pneumothorax. Multilead left chest pacemaker/defibrillatory device appears stable. Visualized gastric Lap-Band device also appears stable. There is apparent cardiomegaly which may be accentuated by low lung volumes and portable apical lordotic technique. No evidence of drainable pleural effusion. Dictated by... Johnny Linda M.D. THIS IS AN ELECTRONICALLY VERIFIED REPORT Johnny Linda M.D. at 11/12/2016 2:24 PM JUDITH/lexus TD: 11/05/2016 13:02 JOB #: [id number] A Service of [facility] & [facility] RADIOLOGY TEXT RESULTS PATIENT: JUVENAL MANCUSO LOCATION: [facility] #: [id number] : 83 UNIT #: [id number] AGE: [address]: Merna Joshi APRN SEX: F ORDER DR: MEDICAL IMAGING REPORT Page 1 of 1 COPY
--- NOTE | ~2016-11-05 | HP ---
Unit #: [id number] #: [id number] Patient: JUVENAL MANCUSO [id number] [facility]. [address] [address] [id number] E MR#: [id number] NAME: JUVENAL MANCUSO ROOM: Age: 31 Sex: F Admission Date: 11/05/2016 : 1985 Attending Physician: Merna Joshi A.P.R.N. Primary Care Physician: Kayy Nina Aprn HISTORY AND PHYSICAL HISTORY OF PRESENT ILLNESS This is a 31-year-old -Portuguese female who is known to Dr. Pinzon but has a history of nonischemic cardiomyopathy where she has an ejection fraction of 10% to 15%. She is status post AICD implantation. She had an angiographically normal coronary artery per cardiac catheterization in 2014. She was discharged from this facility on 10/31/2016 where she was admitted with decompensated systolic heart failure. She was euvolemic on discharge but for the past two days she complains of lower extremity edema and shortness of breath. She has three pillow orthopnea but no paroxysmal nocturnal dyspnea. Last night she developed left anterior chest pain that is constant and nonradiating to the neck, arm, or jaw. She came to the emergency room for evaluation where her blood pressure was initially borderline hypotensive but later dropped to 70 mmHg. She was treated with fluid bolus and her blood pressure improved. Her troponin was negative with BNP of 1626. Chest x-ray was noted for congestive heart failure. The patient states she was taking all of her medications as scheduled. She has noted a decrease in her urinary output. PAST MEDICAL HISTORY 1. 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 Ejection fraction of 10% to 15%. 2. 2D echocardiogram 04/11/2016 shows ejection fraction equal to 10% to 15%. Right left atrium mildly dilated. Mildly dilated right ventricle. Mild pulmonary hypertension with right ventricular systolic pressure of 44 mmHg. Moderate to severe mitral regurgitation and moderate to severe tricuspid regurgitation. Mild pulmonic valvular regurgitation. 3. Nonischemic cardiomyopathy, status post AICD implantation with [employer] device 01/2016. 4. Chronic systolic heart failure. 5. Chronic left bundle branch block. 6. Hypertension. 7. Asthma. 8. Obesity. 9. Nonsmoker. PAST SURGICAL HISTORY 1. Cholecystectomy. 2. AICD implantation. 3. Lap band surgery in 2013. 4. Tonsillectomy. 5. section. Unit #: [id number] #: [id number] Patient: JUVENAL MANCUSO SOCIAL HISTORY The patient is single and unemployed. She has never smoked. There is no illicit drug or alcohol use. FAMILY HISTORY Positive for myocardial infarction in her father at age 74. ALLERGIES Penicillin, sulfa and hydrocodone. DISCHARGE MEDICATIONS 1. Acetaminophen 650 mg q.6 hours p.r.n. 2. Carvedilol 3.125 mg b.i.d. 3. Furosemide 60 mg b.i.d. with an additional 40 mg for shortness of breath or increasing swelling. 4. Lisinopril 5 mg daily. 5. Aldactone 25 mg daily. 6. Protonix 40 mg b.i.d. 7. Potassium chloride 20 mEq daily. REVIEW OF SYSTEMS CONSTITUTIONAL: Negative for fever and chills. Positive for weight gain. No fatigue or weakness. HEENT: No headache. No visual changes or difficulty with swallowing. No dizziness. CARDIOVASCULAR: Has left anterior chest pain described in HPI. Denies palpitations. Positive for three pillow orthopnea but no paroxysmal nocturnal dyspnea. No syncope or near syncope. No discharge over AICD. RESPIRATORY: Has dyspnea at rest. It is worse on exertion. Occasional nonproductive cough. No hemoptysis. GASTROINTESTINAL: No abdominal pain, nausea, vomiting. No constipation nor melena. EXTREMITIES: Positive for lower extremity edema. PHYSICAL EXAMINATION VITAL SIGNS: Blood pressure 87/66, heart rate 105, temperature 97.7. GENERAL: This is a 31-year-old mildly obese, -Portuguese female who is in no acute respiratory distress. NEUROLOGIC: She is awake, alert and oriented. There is no focal weakness. NECK: Trachea is midline. No thyromegaly or lymphadenopathy. No JVD. HEART: S1 and S2. Heart sounds are normal. No murmurs, no rubs or clicks. Regular rate and rhythm. The chest wall is tender with palpation. LUNGS: With fine crackles in the right lung base. ABDOMEN: Soft, nontender with bowel sounds are present. EXTREMITIES: With 3 to 4+ leg edema. Right greater than the left. DIAGNOSTIC STUDIES LABORATORY STUDIES: White count 4.4, hemoglobin 12.7, hematocrit 40.1, platelet count 176. Glucose 83, BUN 20, creatinine 1.0, sodium 138, potassium 3.2, ProTime 14.6, INR 1.4. IMAGING STUDIES: Chest x-ray shows atelectasis or infiltrates in the right lung base. Noted for congestive heart failure. There is a questionable loculated fluid in the right lower lobe. CARDIOLOGY STUDIES: Electrocardiogram shows ventricular paced rhythm with a rate of 111 BPM. Unit #: [id number] #: [id number] Patient: JUVENAL MANCUSO IMPRESSION 1. Recurrent acute on chronic systolic heart failure with reduced ejection fraction of 10% to 15%. 2. Hypotension. 3. Hypokalemia. 4. Nonischemic cardiomyopathy, status post AICD. 5. Atypical chest pain, musculoskeletal in origin. 6. Normal coronaries per cardiac catheterization in 2014. 7. Valvular heart disease, moderate to severe mitral regurgitation and moderate to severe tricuspid regurgitation. PLAN 1. Will start the patient on dobutamine drip and IV diuretics to diurese. 2. Supplement potassium. 3. Will attain the patient's cost of Entresto and start after washout, if blood pressure tolerates. 4. Recent D-dimer was elevated but CT of the chest was negative for pulmonary embolism. 5. Will arrange for transfer to [facility] for the patient to followup with transplant/heart failure team. The patient has had three admissions for heart failure over the past one month. She needs aggressive treatment and possible transplant consideration. Dictated by Carlos Overton M.D. AEP/john TD: 11/05/2016 13:03 JOB #: [id number] HISTORY AND PHYSICAL Page 1 of 1 X Tej Wilson APRN HISTORY AND PHYSICAL
--- NOTE | ~2016-11-05 | EKG ---
PATIENT: JUVENAL MANCUSO UNIT #: [id number] Ventricular Rate: 111 BPM Atrial Rate: 111 BPM QRS Duration: 148 ms Q-T Interval: 438 ms QTC Calculation(Bezet): 595 ms P [place]: 85 degrees Calculated R [place]: -152 degrees Calculated T [place]: -155 degrees Diagnosis Line: Ventricular-paced rhythm Diagnosis Line: Biventricular pacemaker detected Diagnosis Line: Abnormal ECG Diagnosis Line: When compared with ECG of 28-OCT-2016 10:04, Diagnosis Line: Vent. rate has decreased BY 2 BPM Diagnosis Line: Confirmed by LUIS ALBERTO WELLER MD ([id number]) on Diagnosis Line: 11/08/2016 3:14:28 PM INTERPRETING MD: JANEE KWON
[~2016-11-05 08:25] MED LIST changes: +ACETAMINOPHEN650 M4 PO; +PATIENT'S PHARMACY
[2016-11-05 10:08] LABS: BASOPHIL% 0.3 % (0-2.5); EOSINOPHIL# 0.1 X10e3 (0-0.7); EOSINOPHIL% 2.3 % (0.0-7.0); HEMATOCRIT 40.1 % (35.0-45.0); HEMOGLOBIN 12.7 gm/dL (12.0-16.0); LYMPHOCYTE# 1.9 X10e3 (1.0-3.5); LYMPHOCYTE% 42.4 % (17.0-45.0); MEAN CELL VOLUME 97.9 FL (83-96); MEAN CORPUSCULAR HEMOGLOBIN 30.9 PG (28-34); MEAN CORPUSCULAR HGB CONC 31.6 g/dL (30-36); MEAN PLATELET VOLUME 9.5 FL (6.5-11.5); MONOCYTE# 0.5 X10e3 (0-1.0); MONOCYTE% 11.4 % (3.0-12.0); NEUTROPHIL# 1.9 X10e3 (1.5-7.1); NEUTROPHIL% 43.6 % (40-75); PLATELET COUNT 176 X10e3 (140-420); RED CELL DISTRIBUTION WIDTH 17.2 % (11.0-15.5); WHITE BLOOD COUNT 4.4 X10e3 (4.0-10.5)
[2016-11-05 10:09] LABS: DIFF IND NO
[2016-11-05 10:16] LABS: POC - CKMB <1.0 ng/mL (0.0-7.9); POC - TROPONIN <0.05 ng/mL (<=0.05)
[2016-11-05 10:21] LABS: INR 1.4; PARTIAL THROMBOPLASTIN TIME 28.5 SECONDS (23.5-31.3); PROTHROMBIN TIME (PATIENT) 14.6 SECONDS (9.6-11.5)
[2016-11-05 10:36] LABS: ALBUMIN SERUM 3.4 g/dL (3.5-5.0); BILIRUBIN, DIRECT 1.1 mg/dL (0.0-0.2); BILIRUBIN,INDIRECT 2.1 mg/dL (0.0-0.9); BILIRUBIN,TOTAL 3.2 mg/dL (0.2-2.0); GLOM FILT RATE Estimated 86.4 mL/min (>60); POTASSIUM 3.2 mmol/L (3.5-5.1); PROTEIN TOTAL SERUM 6.8 g/dL (6.0-8.3)
[2016-11-05 12:23] LABS: POC - CKMB <1.0 ng/mL (0.0-7.9); POC - TROPONIN <0.05 ng/mL (<=0.05)
[2016-11-05] MEDS ORDERED: FUROSEMIDE40 MG PO (13:46)
[2016-11-05] MEDS ORDERED: K-TAB ER20 MEQ PO (13:46)
[2016-11-05] MEDS ORDERED: COREG3.125 MG PO (13:58)
[2016-11-05] MEDS ORDERED: PRINIVIL5 MG PO (13:58)
== END 2016-11-05 16:00 | disposition short-term general hospital (02) ==
LOC: CED 08:25
PROVIDERS: Nurse Practitioner
DX: I11.0 Hypertensive heart disease with heart failure (principal); I50.9 Heart failure, unspecified; J45.909 Unspecified asthma, uncomplicated; E66.9 Obesity, unspecified; Z90.49 Acquired absence of other specified parts of digestive tract; Z98.890 Other specified postprocedural states; Z88.0 Allergy status to penicillin; Z88.2 Allergy status to sulfonamides
CPT/HCPCS: 71010; 80048; 80076; 82553; 83735; 83880; 84484; 85025; 85610; 85730; 93005; 99285; J1250; J1650